=== PATIENT | male | born 1970 | race Caucasian/White ===

== ENCOUNTER 2024-11-04 18:55 | Emergency (ER) | payer SELFPAY ==
[~2024-11-04] VITALS: Ht 177.8 cm; Wt 80.0 kg
[~2024-11-04 18:55] MED LIST: AZITHROMYCIN500 MG PO; DESYREL50 MG PO; GLIPIZIDE10 M2 PO; LISINOPRIL20 M1 PO; LOVASTATIN20 M1 PO; MEDDOSEPAK PO; METFORMIN HYDR850 MG; METFORMIN HYDR850 MG PO; PIOGLITAZONE HC30 MG; PIOGLITAZONE HC30 MG PO; SERTRALINE100 MG PO; TRAZODONE100 MG PO; TRIAMCINOLONE A0.12 EX
[2024-11-04 19:14] VITALS: BP 129/83
[2024-11-04 19:15] VITALS: BP 121/78
[2024-11-04] MEDS ORDERED: CEFEPIME HYDROCHLORIDE 1 GM in SODIUM CHLORIDE 0.9% 50 ML IV ONE (19:25)
[2024-11-04] MEDS ORDERED: VANCOMYCIN HCL 1 GM in SODIUM CHLORIDE 0.9% 500 ML IV ONE (19:25)
[2024-11-04 19:50] LABS: BASO% 0.6 % (0-3); EOS% 2.2 % (0-8); HEMATOCRIT 42.9 % (39.0-50.0); HEMOGLOBIN 14.9 g/dl (14.0-18.0); IMMATURE GRANULOCYTES 0.5 % (0.0-5.0); LYMPH% 23.5 % (15-41); MEAN CELL VOLUME 91.7 fL CALC (80.0-100.0); MEAN CORPUSCULAR HGB 31.8 pG CALC (26.0-32.0); MEAN CORPUSCULAR HGB CONC 34.7 g/dL CAL (32.0-36.0); MONO% 8.2 % (2-13); NEUT# 6.27 thou/uL (1.82-7.42); RED BLOOD COUNT 4.68 mill/uL (4.70-6.10); RED CELL DISTRI WIDTH 11.8 % (11.5-15.5)
[2024-11-04 20:02] LABS: ALBUMIN 3.8 g/dL (3.2-5.0); BILIRUBIN, TOTAL 0.4 mg/dL (0.2-1.3); CREATININE 0.9 mg/dL (0.7-1.3); POTASSIUM 4.2 mmol/l (3.5-5.1); TOTAL PROTEIN 6.7 g/dL (6.3-8.2)
[2024-11-04] MEDS ORDERED: Diph, Acellular Pertussis, Tet 0.5 ML/VIAL (Tdap) SDV IM ONE (23:05)
[2024-11-04 23:37] VITALS: BP 141/80
[2024-11-04 23:46] VITALS: BP 122/72
[2024-11-05 00:51] VITALS: BP 122/72
== END 2024-11-05 00:52 | DRG 558 ==
LOC: ED 18:55
PROVIDERS: Emergency Medicine
DX: M65.141 Other infective (teno)synovitis, right hand (principal); S61.242A Puncture wound with foreign body of right middle finger without damage to nail, initial encounter; E11.9 Type 2 diabetes mellitus without complications; I10 Essential (primary) hypertension; E78.5 Hyperlipidemia, unspecified; X58.XXXA Exposure to other specified factors, initial encounter; Z79.84 Long term (current) use of oral hypoglycemic drugs
CPT/HCPCS: 90715; J0692; J3370